=== PATIENT | male | born 1970 | race Caucasian/White ===

== ENCOUNTER 2016-09-03 17:39 | Emergency (ER) | payer OTHER ==
--- NOTE | ~2016-09-03 | ER ---
[facility] AGE[facility] 46 Y [address] ROOM: [place] [address] LOCATION: [facility] ADMIT DATE: 09/03/2016 ER/Outpatient Report DISCHARGE DATE: 09/03/2016 FAMILY PHYSICIAN: Physician, Unknown ATTENDING PHYSICIAN: Leah King Time of Arrival: 1736 hours. Time of Evaluation: 1746 hours. CHIEF COMPLAINT: Medical clearance. HISTORY OF PRESENT ILLNESS: This is a pleasant 46-year-old male, who is driving under the influence of alcohol early in a day and brought in by police. Blew a 0.338 alcohol for officer. No complaints at this time. Routine drinker who that normally imbibes 8-10 beers per day. Officer and the patient states that he has been "drinking all day." Not sure of the total amount for today. The patient denies any history of detox complications. No history of seizures. No confusion at this time. He is alert and cooperative. HISTORY OF PRESENT ILLNESS: All systems were reviewed by me and negative unless otherwise stated in the HPI. PAST MEDICAL HISTORY: Includes hypertension. PAST SURGICAL HISTORY: No past surgeries. ALLERGIES: NO KNOWN DRUG ALLERGIES. MEDICATIONS: The patient was unable to comment on his current medication regimen. SOCIAL HISTORY: 8-10 alcoholic beverages per day, but is a nonsmoker. PHYSICAL EXAMINATION: VITAL SIGNS: Height 6 feet 1 inch, weight not taken, blood pressure 135/79, pulse 95, respirations 16 breaths per minute, 95% on room air. No pain. GENERAL: The patient is an obese male, in no acute distress. Calm. Alert and oriented to person, place, and time. PATIENT'S NAME: KACEY RODRÍGUEZ [facility] AGE: 46 Y [address] ROOM: [place] [address] LOCATION: [facility] ADMIT DATE: 09/03/2016 ER/Outpatient Report DISCHARGE DATE: 09/03/2016 FAMILY PHYSICIAN: Physician, Unknown ATTENDING PHYSICIAN: Leah King HEENT: Head is atraumatic and normocephalic. Eyes: Conjunctivae clear. No discharge. Pupils are PERRLA bilaterally. EOMFI bilaterally, but with lateral nystagmus on extremes of motion bilaterally. Ears with tympanic membrane showing good light reflex bilaterally. Auditory canals are patent. Nose: Turbinates clear and not swollen. No drainage. Throat: Midline uvula. No exudates, erythema, or tonsillar hypertrophy. NECK: Supple and without lymphadenopathy. Trachea midline. No JVD. LUNGS: Clear to auscultation bilaterally. No wheezes, crackles, rhonchi, or stridor. Normal respiratory effort. HEART: Regular rate and rhythm. No S3, S4, or extra sounds. NEURO: Cranial nerves 2 through 12 grossly intact. LABORATORY DATA AND X-RAYS: Blood alcohol elevated over 0.405. CMS shows sodium 136, potassium 3.7, chloride 98, CO2 of 25, anion gap 16.7, glucose 141, calcium 8.0, BUN 4, creatinine 0.8. Total protein 7.3, albumin 3.8, globulin 3.5, A/G ratio 1.1, total bilirubin 0.9, alkaline phosphatase 123, AST 554, ALT 418, and estimated GFR over 60. ASSESSMENT AND PLAN: Alcoholism. The patient presents today for medical clearance before moving toward to group home. The patient is cooperative and agreeable to all requests. No obvious concerns at this time. No signs of delirium tremens. If any concerns develop, he may need to be reassessed. Discussed signs and symptoms of seizure and confusion, that accompanied delirium tremens. Advised the patient to push fluids, but he states he is not thirsty at this time. Emphasized the importance of rehydration after this type of exertion, and he verbalized understanding, and again refused fluid intake. He was released to care of officer Shan Sesay of [place] [employer]. Stable condition. Take all medications as prescribed. Discussed med risks, side effects, and benefits in detail. Give plenty of rest and liquids. Take Tylenol or ibuprofen as directed for fever or discomfort unless allergic, asthmatic, or aspirin sensitive. Return to the emergency department or primary care provider if symptoms persist or worsen. SHAN PHILLIPS PA-C FOR LEAH KING MD SMR/modl PATIENT'S NAME: KACEY RODRÍGUEZ [facility] AGE: 46 Y [address] ROOM: [place] [address] LOCATION: [facility] ADMIT DATE: 09/03/2016 ER/Outpatient Report DISCHARGE DATE: 09/03/2016 FAMILY PHYSICIAN: , Rashid ATTENDING PHYSICIAN: Leah King /[id number] d: 09/03/16 2339 t: 09/09/16 1217, OUTPATIENT REPORT
[2016-09-03 18:23] LABS: ALBUMIN 3.8 gm/dL (3.5-5.0); ALK PHOS 123 IU/L (33-138); ANION GAP 16.7 (10.0-19.0); BLOOD UREA NITROGEN 4 mg/dL (6-24); CHLORIDE 98 mMol/L (96-110); CO2 25 mMol/L (22-32); CREATININE 0.8 mg/dL (0.6-1.3); ESTIMATED GFR (MDRD EQUATION) > 60; POTASSIUM 3.7 mMol/L (3.7-5.1); SODIUM 136 mMol/L (135-145); TOTAL BILIRUBIN 0.9 mg/dL (0.0-1.5); TOTAL PROTEIN 7.3 g/dL (6.0-8.4)
[2016-09-03 18:25] LABS: ALT 418 IU/L (12-78); AST 554 IU/L (10-40)
== END 2016-09-03 18:38 | disposition disaster alternative care site (69) ==
LOC: GMED 17:39
PROVIDERS: Family Medicine
DX: F10.229 Alcohol dependence with intoxication, unspecified (principal); I10 Essential (primary) hypertension; Y90.8 Blood alcohol level of 240 mg/100 ml or more
CPT/HCPCS: G0480

== ENCOUNTER 2016-11-15 16:50 | Emergency (ER) | payer OTHER ==
--- NOTE | ~2016-11-15 | ER ---
PATIENT'S NAME: KACEY RODRÍGUEZ [facility] AGE: 46 Y [address] ROOM: [place] [address] LOCATION: [facility] ADMIT DATE: 11/15/2016 ER/Outpatient Report DISCHARGE DATE: 11/15/2016 FAMILY PHYSICIAN: Physician, Unknown ATTENDING PHYSICIAN: Leah Ramsey Time of Patient's Arrival: 1650 hours. Time of Patient's Evaluation: 1650 hours. CHIEF COMPLAINT: Medical clearance to correction. HISTORY OF PRESENT ILLNESS: This is a 46-year-old male who presents to the ER in the custody of the [facility] Police who states he is needing medical clearance to correction. The patient was picked up for DUI and had an elevated blood alcohol test. The patient states he is not having any chest pain, no shortness of breath, no cough, no recent illnesses. He states he does not drink every day and just drinks alcohol occasionally. He denies any other problems at this time. ALLERGIES: NO KNOWN ALLERGIES. MEDICATIONS: None. PAST MEDICAL HISTORY: Negative. PAST SURGERIES: None. SOCIAL HISTORY: Denies smoking or drug use. Does drink alcohol occasionally. REVIEW OF SYSTEMS: All systems reviewed were negative with the exception of those discussed in the HPI. PHYSICAL EXAMINATION: VITAL SIGNS: Height 6 feet 1 inch stated, blood pressure 128/73, pulse 106, respirations 20, temperature 97.1 degrees tympanically, and saturations 96% on room air. [place] Coma Score is 15. GENERAL: Alert, intoxicated 46-year-old male, in no acute distress. The patient answers questions appropriately and follows directions appropriately. PATIENT'S NAME: KACEY RODRÍGUEZ [facility] AGE: 46 Y [address] ROOM: [place] [address] LOCATION: [facility] ADMIT DATE: 11/15/2016 ER/Outpatient Report DISCHARGE DATE: 11/15/2016 FAMILY PHYSICIAN: Physician, Unknown ATTENDING PHYSICIAN: Leah Ramsey HEENT: Head: Normocephalic. He does display moist mucous membranes. LUNGS: Clear to auscultation bilaterally. HEART: Slightly tachycardic. Normal rhythm. EXTREMITIES: No clubbing or cyanosis. He has full range of motion of all limbs. SKIN: Warm, dry, and intact. LABORATORY DATA AND X-RAYS: None were done. IMPRESSION: Medical clearance to correction after DUI arrest. ASSESSMENT AND PLAN: [facility] officers state that the correction does have an alcohol protocol watch that they perform on their inmates, so I will have them implement that with the patient. He may continue to push fluids and follow up with his primary care physician as needed. The patient understands and agrees with care. KRISTY BETHEA PA-C FOR MD MARILU MCCARTY/emerson /[id number] d: 11/15/169 t: 11/18/16819, OUTPATIENT REPORT
== END 2016-11-15 16:55 | disposition disaster alternative care site (69) ==
LOC: GMED 16:50
DX: F10.129 Alcohol abuse with intoxication, unspecified (principal)